=== PATIENT | male | born 1940 | race Caucasian/White ===

== ENCOUNTER 2016-10-21 10:20 | Emergency (ER) | payer OTHER ==
[~2016-10-21] VITALS: Ht 175.3 cm; Wt 106.6 kg
[~2016-10-21 10:20] MED LIST: ALEN70TA2 PO; ALPR0.5T PO; ASCO1CAP3 PO; ASPI81TA28 PO; ATOR-24 PO; BUME2TAB3 PO; CARV12.52 PO; CHOL1CAP57 PO; CYCL10TA6 PO; ESCI10TA17 PO; FNTTP50 TD; HYDR-4079 PO; HYDR-4383 PO; LACT15SO PO; LOSA100T65 PO; MAGN1CAP2 PO; MIRT30TA PO; MULT-506 PO; NITR0.4S UT; OMEP20CA9 PO; OXGN; POLYSOL4 OP; POTA20TA16 PO; TAMS0.4C38 PO
[2016-10-21 10:24] VITALS: Ht 175.3 cm; Wt 106.6 kg
[2016-10-21] MEDS ORDERED: ONDANSETRON 8 MG/54 ML D5W IV STA (11:07)
[2016-10-21] MEDS ORDERED: MoRPHine SULFATE 4 MG/ML 1 ML CARP\\VIAL IV PRN (11:15)
[2016-10-21 11:23] LABS: BASO % 0.2 %; BASO ABS # 0.02 K/uL (0-0.2); COMPLETE YES; EOS % 0.4 %; HEMATOCRIT 51.1 % (42-52); IG% 0.2 %; LYMPH % 13.1 %; LYMPH ABS # 1.12 K/uL (1.2-3.4); MEAN CELL VOLUME 91.4 fL (80-100); MEAN CORPUSCULAR HEMOGLOBIN 31.1 pg (25-34); MEAN CORPUSCULAR HGB CONC 34.1 g/dl (32-36); MEAN PLATELET VOLUME 10.7 fL (7.4-10.4); MONO % 5.4 %; NEUT % 80.7 %; PLATELET COUNT 173 K/uL (130-400); RED BLOOD COUNT 5.59 M/uL (4.7-6.1); WHITE BLOOD COUNT 8.57 K/uL (4.8-10.8)
--- NOTE | 2016-10-21 11:27 | DIAGNOSTIC IMAGING REPORT ---
CHEST ONE VIEW PORTABLE CLINICAL HISTORY: Altered mental status. Weakness. COMPARISON STUDY: Chest radiograph March 21, 2015. FINDINGS: There are median sternotomy wires. Cardiomegaly is unchanged. There is no evidence of pulmonary edema. Linear left basilar opacity is suggestive of atelectasis or scarring. No consolidation is identified to suggest pneumonia. IMPRESSION: 1. No acute findings. 2. Stable cardiomegaly. 3. Mild left basilar opacity suggestive of atelectasis. Electronically signed by: Tim Brand M.D. 10/21/2016 11:26 AM Dictated Date/Time: 10/21/2016 11:25 AM
[2016-10-21 11:31] LABS: BUN/CREATININE RATIO 12.2 (10-20); CALCIUM 9.8 mg/dl (8.5-10.1); CREATININE 1.4 mg/dl (0.60-1.40); INR 1.1 (0.9-1.1); POTASSIUM 3.4 mmol/L (3.5-5.1); PROTHROMBIN TIME (PATIENT) 11.7 SECONDS (9.0-12.0)
[2016-10-21 11:35] LABS: CKMB/CK RATIO 2.9 (0-3.0)
[2016-10-21] MEDS ORDERED: MTR800 PO (11:38)
[2016-10-21] MEDS ORDERED: HYDR-5688 PO (11:38)
--- NOTE | 2016-10-21 12:05 | DIAGNOSTIC IMAGING REPORT ---
HEAD CT NONCONTRAST CT DOSE: 614.27 mGy.cm HISTORY: Mental status change EVALUATE ALTERED MENTAL STATUS/WEAKNESS TECHNIQUE: Multiaxial CT images of the head were performed without the use of intravenous contrast. Comparison: None. Findings: The paranasal sinuses and mastoid air cells are clear. The calvarium and skull base are intact. The ventricles and sulci are within normal limits. There is no mass, hematoma, midline shift, or acute infarct. Evidence for prior left suboccipital craniotomy. Trace amount of air within the venous structures about the base of the skull and soft tissues consistent with air secondary to injection artifact. Impression: 1. No acute intracranial abnormality. 2. Findings consistent with a left central suboccipital craniotomy 3. No acute process. Electronically signed by: Luke Fernandez M.D. 10/21/2016 12:03 PM Dictated Date/Time: 10/21/2016 11:56 AM
--- NOTE | 2016-10-21 13:41 | EMERGENCY ROOM VISIT NOTE ---
History Report prepared by Robert: Sarah Cordova Under the Supervision of: Dr. Aniket Aquino D.O. First contact with patient: 10:45 Chief Complaint: HEAD PAIN Stated Complaint: BACK OF HEAD PAIN/RADIATING HX: ANEURYSM History of Present Illness The patient is a 76 year old male who presents to the Emergency Room with complaints of worsening head pain that began several months ago. He currently rates his discomfort as a 10/10 in severity. The patient states that he has a history of a ruptured cerebral hemorrhage in 1999. He states that he had it repaired in [facility], which left him with headaches. The patient states that his headache that radiates, noting pain shooting out of his left eye. He additionally associates nausea with his symptoms today. The patient states that he has had a decrease in appetite due to the discomfort. The patient states that he had CT scans a few days ago at [place] emergency department, and notes that his CT scan was normal. He states that he was instructed to follow up with a neurologist, but states that he cannot get in to see one until December. The patient states that he called [facility] yesterday and was told that if he came to the emergency department he could get in to see a neurologist today. He states that he has been using hydrocodone for his discomfort and states that he has previously been on a Fentanyl patch. Source of History: patient Onset: several months ago Position: head Symptom Intensity: 10/10 Timing: worsening Associated Symptoms: + nausea Note: Associated Symptoms: decreased appetite Review of Systems See HPI for pertinent positives & negatives. A total of 10 systems reviewed and were otherwise negative. Past Medical & Surgical Medical Problems: (1) Cerebral aneurysm rupture (2) Heart disease (3) Hypertension (4) Pneumonia Family History Cancer Heart disease Hypertension Kidney disease Kidney stones Social History Smoking Status: Former Smoker Smokeless Tobacco Use: No Alcohol Use: none Marital Status: Housing Status: lives with significant other Occupation Status: retired Current/Historical Medications Scheduled Alendronate Sodium (Fosamax), 70 MG PO WK Ascorbic Acid (Vitamin C), 500 MG PO QAM Aspirin (Aspirin Ec), 81 MG PO QAM Atorvastatin (Lipitor), 40 MG PO QAM Bumetanide (Bumex), 2 MG PO QAM Carvedilol (Coreg), 12.5 MG PO BID Cholecalciferol (Vitamin D3), 1,000 UNITS PO QAM Cyclobenzaprine Hcl (Flexeril), 10 MG PO HS Escitalopram (Lexapro), 10 MG PO QAM Ibuprofen (Ibuprofen), 800 MG PO BID Lactulose (Constulose), 2 TBS PO HS Losartan Potassium (Cozaar), 100 MG PO QAM Magnesium Oxide (Mg Supplement (Magnesium), 400 MG PO BID Mirtazapine (Remeron), 30 MG PO HS Multivitamin (Multivitamin), 1 TAB PO QAM Nitroglycerin (Nitrostat), 0.4 MG UT PRN Omeprazole (Prilosec), 20 MG PO QAM Ondasetron Odt (Zofran Odt), 4 MG SL Q6H Oxygen (Oxygen), 3 LITER NA HS Potassium Ext Rel (Klor-Con), 20 MEQ PO BID Tamsulosin Hcl (Flomax), 0.4 MG PO QPM Scheduled PRN Hydrocodone/Acetaminophen 5MG/325MG (Lefor 5MG/325MG), 1-2 TABS PO Q6 PRN for Pain Polyethylene Glycol-Propylene (Systane), 1 DROPS OP QID PRN for DRYNESS Allergies Coded Allergies: No Known Allergies (Unverified , 08/04/16) Physical Exam Vital Signs Date Time Temp Pulse Resp B/P Pulse Ox O2 Delivery O2 Flow Rate FiO2 10/21/16 12:26 76 18 172/102 96 Room Air 10/21/16 10:41 80 10/21/16 10:24 36.7 87 20 196/74 96 Room Air Physical Exam VITAL SIGNS: were reviewed as above. GENERAL:Non-toxic in appearance. SKIN: Warm dry and pink. HEAD: Normocephalic and atraumatic. OROPHARYNX: Is clear and moist NECK: Supple without lymphadenopathy or meningismus. LUNGS: clear. HEART: Regular rate and rhythm. ABDOMEN: Soft and nontender. EXTREMITIES: Warm and well perfused. NEUROLOGICALLY: Awake alert and oriented without focal deficit. Cranial nerves 2 -12 are intact. There is no pronator drift. Cerebellar testing is within normal limits. There is no nystagmus. There is no facial droop. Speech is clear. Vision is grossly normal. MUSCULOSKELETAL: Good muscle tone. No evidence of trauma. Medical Decision & Procedures ER Provider Diagnostic Interpretation: X ray results and stated below per my interpretation and radiologist interpretation. Other radiology results and stated below per my review and radiologist interpretation: HEAD CT NONCONTRAST CT DOSE: 614.27 mGy.cm HISTORY: Mental status change EVALUATE ALTERED MENTAL STATUS/WEAKNESS TECHNIQUE: Multiaxial CT images of the head were performed without the use of intravenous contrast. Comparison: None. Findings: The paranasal sinuses and mastoid air cells are clear. The calvarium and skull base are intact. The ventricles and sulci are within normal limits. There is no mass, hematoma, midline shift, or acute infarct. Evidence for prior left suboccipital craniotomy. Trace amount of air within the venous structures about the base of the skull and soft tissues consistent with air secondary to injection artifact. Impression: 1. No acute intracranial abnormality. 2. Findings consistent with a left central suboccipital craniotomy 3. No acute process. Electronically signed by: Luke Fernandez M.D. 10/21/2016 12:03 PM Dictated Date/Time: 10/21/2016 11:56 AM CHEST ONE VIEW PORTABLE CLINICAL HISTORY: Altered mental status. Weakness. COMPARISON STUDY: Chest radiograph March 21, 2015. FINDINGS: There are median sternotomy wires. Cardiomegaly is unchanged. There is no evidence of pulmonary edema. Linear left basilar opacity is suggestive of atelectasis or scarring. No consolidation is identified to suggest pneumonia. IMPRESSION: 1. No acute findings. 2. Stable cardiomegaly. 3. Mild left basilar opacity suggestive of atelectasis. Electronically signed by: Tim Brand M.D. 10/21/2016 11:26 AM Dictated Date/Time: 10/21/2016 11:25 AM Laboratory Results 10/21/16 10:40 Red Blood Count 5.59, Mean Corpuscular Volume 91.4, Mean Corpuscular Hemoglobin 31.1, Mean Corpuscular Hemoglobin Concent 34.1, Mean Platelet Volume 10.7, Neutrophils (%) (Auto) 80.7, Lymphocytes (%) (Auto) 13.1, Monocytes (%) (Auto) 5.4, Eosinophils (%) (Auto) 0.4, Basophils (%) (Auto) 0.2, Neutrophils # (Auto) 6.92, Lymphocytes # (Auto) 1.12, Monocytes # (Auto) 0.46, Eosinophils # (Auto) 0.03, Basophils # (Auto) 0.02 10/21/16 10:40 Test 10/21/16 10:40 White Blood Count 8.57 K/uL (4.8-10.8) Red Blood Count 5.59 M/uL (4.7-6.1) Hemoglobin 17.4 g/dL (14.0-18.0) Hematocrit 51.1 % (42-52) Mean Corpuscular Volume 91.4 fL (80-100) Mean Corpuscular Hemoglobin 31.1 pg (25-34) Mean Corpuscular Hemoglobin Concent 34.1 g/dl (32-36) Platelet Count 173 K/uL (130-400) Mean Platelet Volume 10.7 fL (7.4-10.4) Neutrophils (%) (Auto) 80.7 % Lymphocytes (%) (Auto) 13.1 % Monocytes (%) (Auto) 5.4 % Eosinophils (%) (Auto) 0.4 % Basophils (%) (Auto) 0.2 % Neutrophils # (Auto) 6.92 K/uL (1.4-6.5) Lymphocytes # (Auto) 1.12 K/uL (1.2-3.4) Monocytes # (Auto) 0.46 K/uL (0.11-0.59) Eosinophils # (Auto) 0.03 K/uL (0-0.5) Basophils # (Auto) 0.02 K/uL (0-0.2) RDW Standard Deviation 44.9 fL (36.4-46.3) RDW Coefficient of Variation 13.5 % (11.5-14.5) Immature Granulocyte % (Auto) 0.2 % Immature Granulocyte # (Auto) 0.02 K/uL (0.00-0.02) Prothrombin Time 11.7 SECONDS (9.0-12.0) Prothromb Time International Ratio 1.1 (0.9-1.1) Activated Partial Thromboplast Time 25.9 SECONDS (21.0-31.0) Partial Thromboplastin Ratio 1.0 Anion Gap 11.0 mmol/L (3-11) Est Creatinine Clear Calc Drug Dose 54.0 ml/min Estimated GFR () 56.2 Estimated GFR (Non- 48.5 BUN/Creatinine Ratio 12.2 (10-20) Calcium Level 9.8 mg/dl (8.5-10.1) Total Creatine Kinase 187 U/L (39-308) Creatine Kinase MB 5.5 ng/ml (0.5-3.6) Creatine Kinase MB Ratio 2.9 (0-3.0) Laboratory results as stated above per my review. Medications Administered Medications (Trade) Dose Ordered Sig/Yogi Route Start Time Stop Time Status Last Admin Dose Admin Morphine Sulfate (MoRPHine SULFATE INJ) 4 mg Q1H PRN IV 10/21/16 11:15 11/04/16 11:14 10/21/16 11:35 4 MG Ondansetron HCl (Zofran 8mg Iv) 8 mg NOW STAT IV 10/21/16 11:07 10/21/16 11:09 DC 10/21/16 11:34 8 MG ED Course 1046: Previous medical records were reviewed. The patient was evaluated in room C9. A complete history and physical examination was performed. 1107: Ordered Zofran 8 mg IV. 1115: Ordered Morphine Sulfate 4 mg IV. 1200: I reviewed the patient's CT report from [place]. The patient had a CT angio of his head with and without contrast on 10/19/16. There was chronic age related changes and post-surgical findings from an aneurysm repair. No evidence for a new aneurysm or acute pathology. 1342: I reevaluated the patient and he is resting comfortably. I discussed the exam findings with him and I discussed the treatment plan. He verbalized complete understanding and agreement. He is ready to go home. Medical Decision Differential includes: Acute intracranial bleed, trauma, meningitis, encephalitis, increased intracranial pressure, mass or mass effect, facial or dental infection, temporal arteritis, CVA, TIA, acute hypertensive emergency, sinusitis, carbon monoxide exposure. This is a 76-year-old male who presents to the ED with a chief complaint of a headache. The patient was seen at [facility] 2 days ago for the same symptoms. At that time he had a CT scan of the brain with and without contrast/ angiogram. The findings did not reveal any acute abdomen. She had blood work as well as was unremarkable. The patient was told to see a neurologist in the next couple of days. He was unable to get an appointment and therefore came for emergency department anticipating to see a neurologist. The patient states that he has persistent head pain as he had previously. There has not been any changes in his symptoms. His exam was normal. He has no neural deficits. A CT scan of the brain today did not show any acute anomaly. Blood work was unremarkable. Chest x-ray did not show acute disease. The patient was told the results of the test. He was given a referral to Dr. Cottrell from neurology. He was felt to be stable for discharge. He was treated with IV morphine and IV Zofran. Impression Primary Impression: Headache Additional Impression: Hypertension Scribe Attestation The scribe's documentation has been prepared under my direction and personally reviewed by me in its entirety. I confirm that the note above accurately reflects all work, treatment, procedures, and medical decision making performed by me. Departure Information Dispostion Home / Self-Care Prescriptions Ondasetron Odt (ZOFRAN ODT) 4 Mg Tab 4 MG SL Q6H for Nausea, #15 TAB Prov: Aniket Aquino D.O. 10/21/16 Referrals German Presley D.O. (PCP) Matilde Shabazz D.O. Forms HOME CARE DOCUMENTATION FORM, IMPORTANT VISIT INFORMATION, WORK / SCHOOL INSTRUCTIONS Patient Instructions Headache Pain, My [facility] [place] Additional Instructions Your blood pressure today was noted to be elevated. Talk to your doctor about this. Follow-up with Dr. Shabazz from Neurology. Call today for appointment. Follow-up with your doctor for further care and evaluation in 1-2 days. Return to the emergency department for worsening or new symptoms or any concerns. You have been examined and treated today on an emergency basis only. This is not a substitute for, or an effort to provide, complete comprehensive medical care. It is impossible to recognize and treat all injuries or illnesses in a single emergency department visit. It is therefore important that you follow up closely with your doctor. Call as soon as possible for an appointment. Problem Qualifiers
[2016-10-21] MEDS ORDERED: ONDA4TAB10 SL (13:47)
[2016-10-21 14:14] VITALS: BP 169/101; PULSE 76; TEMP 36.7; O2SAT 96
== END 2016-10-21 14:16 | disposition home or self-care (01) ==
LOC: C.EDB 10:21 → C.EDC 14:16
DX: R51 Headache (principal); I10 Essential (primary) hypertension; Z87.01 Personal history of pneumonia (recurrent); Z87.891 Personal history of nicotine dependence; Z82.49 Family history of ischemic heart disease and other diseases of the circulatory system; Z84.1 Family history of disorders of kidney and ureter; Z79.82 Long term (current) use of aspirin; Z79.899 Other long term (current) drug therapy